=== PATIENT | female | born 1985 | race Two or more races ===

== ENCOUNTER 2018-11-25 12:00 | Observation (INO) | payer MEDICAID, OTHER ==
[~2018-11-25] VITALS: Ht 170.2 cm; Wt 129.7 kg
[2018-11-25] MEDS ORDERED: PREN-96 PO (16:21)
[2018-11-25] MEDS ORDERED: LEVO200T7 PO (16:21)
== END 2018-11-25 15:10 | disposition home or self-care (01) | DRG 566 ==
LOC: LDRP 12:00
PROVIDERS: ADMIT Specialist; ATTEND Specialist
DX: O42.913 Preterm premature rupture of membranes, unspecified as to length of time between rupture and onset of labor, third trimester (principal); O62.9 Abnormality of forces of labor, unspecified; O26.893 Other specified pregnancy related conditions, third trimester; N89.8 Other specified noninflammatory disorders of vagina; R10.9 Unspecified abdominal pain; Z3A.29 29 weeks gestation of pregnancy
CPT/HCPCS: 59025; 76818; 81002; G0378

== ENCOUNTER → 2019-01-30 14:00 | Observation (INO) | payer MEDICAID ==
[~2019-01-30 14:00] MED LIST: LEV50T PO; LEVO200T7 PO; PREN-96 PO
== END | disposition home or self-care (01) | DRG 566 ==
LOC: LDRP 14:00
PROVIDERS: ADMIT Obstetrics & Gynecology; ATTEND Obstetrics & Gynecology
DX: O26.893 Other specified pregnancy related conditions, third trimester (principal); O12.03 Gestational edema, third trimester; R10.2 Pelvic and perineal pain; R51 Headache; R19.7 Diarrhea, unspecified; Z3A.35 35 weeks gestation of pregnancy
CPT/HCPCS: 59025; 81002; G0378

== ENCOUNTER 2021-12-10 13:08 | Emergency (ER) | payer MEDICAID ==
[~2021-12-10] VITALS: Ht 170.2 cm; Wt 131.5 kg
[~2021-12-10 13:08] MED LIST changes: -LEVO200T7 PO
[2021-12-10] MEDS ORDERED: SODIUM CHLORIDE 0.9% 1,000 ML IV ONE (13:15)
[2021-12-10] MEDS ORDERED: MORPHINE SULFATE 4 MG/ML SYR/VIAL IV ONE (13:15)
[2021-12-10] MEDS ORDERED: ONDANSETRON HCL 4 MG/2 ML VIAL IV ONE ×2 (13:15→18:15)
[2021-12-10 14:19] LABS: Basophils # (auto) 0.1 10 ^3/uL (0-0.2); Basophils % (auto) 0.8 % (0.0-2.0); Eosinophils # (auto) 0.1 10 ^3/uL (0-0.8); Eosinophils % (auto) 1.2 % (0.0-7.0); Hematocrit 41.2 % (36.0-46.0); Hemoglobin 14.1 g/dL (12.2-16.2); Lymphocytes # (auto) 2.5 10 ^3/uL (0.4-5.4); Mean Corpuscular Hemoglobin 30.7 pg (28.0-32.0); Mean Corpuscular Hgb Conc. 34.3 g/dL (32.0-36.0); Mean Corpuscular Volume 89.5 fL (80.0-100.0); Monocytes # (auto) 0.6 10 ^3/uL (0-1.3); Monocytes % (auto) 5.6 % (0.0-12.0); Neutrophils # (auto) 6.8 10 ^3/uL (1.6-8.6); Neutrophils % (auto) 67.4 % (37.0-80.0); Nucleated Red Blood Cells % 0.1 %; Red Cell Distribution Width 12.9 % (11.8-14.3); White Blood Cell 10.1 10^3/uL (4.4-10.8)
[2021-12-10 14:32] LABS: Urine Bacteria FEW /hpf (None Seen); Urine Blood Negative /uL (Negative); Urine Specific Gravity 1.013 (1.001-1.035); Urine WBC 2 /hpf (0 - 5)
[2021-12-10 14:51] LABS: INR 1.04 (0.9-1.15)
[2021-12-10 14:59] LABS: Albumin 3.8 g/dL (3.4-5.0); Calcium 8.9 mg/dL (8.5-10.1); Potassium 3.4 mmol/L (3.5-5.1)
[2021-12-10 15:02] LABS: BUN/Creatinine Ratio 11.8; Bilirubin, Total 0.4 mg/dL (0.2-1.0); Total Protein 7.6 g/dL (6.4-8.2)
[2021-12-10] MEDS ORDERED: MORPHINE SULFATE INJECTION 2 MG/ML SYRG IV ONE (18:15)
[2021-12-10 23:22] VITALS: BP 116/59
== END 2021-12-11 | disposition short-term general hospital (02) ==
LOC: EDBD 13:08 → ER 13:08
DX: K42.9 Umbilical hernia without obstruction or gangrene (principal); E03.9 Hypothyroidism, unspecified; Z79.899 Other long term (current) drug therapy; Z88.8 Allergy status to other drugs, medicaments and biological substances
CPT/HCPCS: 36415; 74176; 80053; 81001; 81025; 83690; 85025; 85610; 96361; 96374; 96375; 96376; 99285; J2270; J2405; J7030